=== PATIENT | female | born 1945 | race African-American/Black ===

== ENCOUNTER 2022-11-15 07:59 | Day surgery (SDC) | payer MEDICARE, MEDICAID ==
[2022-11-15] MEDS ORDERED: IODIXANOL 320MG/ML 100 ML BOTTLE IV ONE (10:37)
[2022-11-15] MEDS ORDERED: MIDAZOLAM HCL 2 MG/2 ML VIAL ONE (10:37)
[2022-11-15] MEDS ORDERED: HEPARIN 1000 UNITS/ML 10ML ONE (10:37)
[2022-11-15] MEDS ORDERED: FENTANYL CITRATE/PF 50MCG/ML 2ML VIAL ONE (10:37)
[2022-11-15] MEDS ORDERED: LIDOCAINE HCL 1% 20ML VIAL (Pyxis) INJ ONE (10:38)
[2022-11-15] MEDS ORDERED: METO25TA6 PO (11:12)
[2022-11-15] MEDS ORDERED: PANT40TA51 PO (11:12)
[2022-11-15] MEDS ORDERED: LISI40TA13 PO (11:12)
[2022-11-15] MEDS ORDERED: NIFE-32 PO (11:12)
[2022-11-15] MEDS ORDERED: RIVA10TA PO (11:12)
[2022-11-15] MEDS ORDERED: MONT-46 PO (11:12)
[2022-11-15] MEDS ORDERED: ALBU4TAB6 MT (11:13)
[2022-11-15] MEDS ORDERED: ATOR40TA70 PO (11:13)
[2022-11-15] MEDS ORDERED: CLOP-31 PO (11:13)
[2022-11-15] MEDS ORDERED: GABA-532 PO (11:13)
[2022-11-15] MEDS ORDERED: ALLO100T PO (11:13)
[2022-11-15] MEDS ORDERED: LEVO88TA7 PO (11:13)
[2022-11-15] MEDS ORDERED: ONDANSETRON HCL 4MG/2ML INJ IV PRN (11:30)
[2022-11-15] MEDS ORDERED: ACETAMINOPHEN 325MG TABLET PO PRN (11:30)
[2022-11-15] MEDS ORDERED: ATROPINE SULFATE 1MG/10ML SYR IV PRN (11:30)
== END 2022-11-15 18:35 | disposition home or self-care (01) ==
LOC: CCL 07:59
PROVIDERS: ATTEND Specialist
DX: I73.9 Peripheral vascular disease, unspecified (principal); I10 Essential (primary) hypertension; E11.9 Type 2 diabetes mellitus without complications; J44.9 Chronic obstructive pulmonary disease, unspecified; E78.5 Hyperlipidemia, unspecified; E03.9 Hypothyroidism, unspecified; E66.9 Obesity, unspecified; Z87.891 Personal history of nicotine dependence; Z79.899 Other long term (current) drug therapy; Z98.890 Other specified postprocedural states; Z68.36 Body mass index [BMI] 36.0-36.9, adult
CPT/HCPCS: 36245; 75710; C1725; C1769; C1893; J1644; J2250; J3010; J3490; Q9967; Z7610

== ENCOUNTER → 2023-05-14 | Day surgery (SDC) | payer MEDICARE, MEDICAID ==
[~2023-05-14] VITALS: Ht 177.8 cm; Wt 116.1 kg
[~2023-05-14] MED LIST: ALBU4TAB6 MT; ALLO100T PO; ATOR40TA70 PO; BALANCED SALT IRRIG SOLN COMB1 500ML OP NR; CLOP-31 PO; CYCLOPENTOLATE HCL 1% OPHTH DROPS 2ML LEFTEYE ONE; FENTANYL CITRATE/PF 50MCG/ML 2ML VIAL ONE; FOLI-43 PO; FURO20TA4 PO; GABA-532 PO; HYALURONATE SODIUM 10 MG/ML 0.55ML SYRINGE IO ONE; LACTATED RINGERS 1,000 ML IV SCH; LEVO50TA8 PO; LEVO88TA7 PO; LISI40TA13 PO; MAGN400C PO; METO25TA6 PO; MIDAZOLAM HCL 2 MG/2 ML VIAL ONE; MONT-46 PO; NIFE-32 PO; NIFE90TA60 PO; PANT40TA51 PO; PHENYLEPHRINE HCL 10% OPHTH DROPS 5ML LEFTEYE ONE; RIVA10TA PO; RIVA2.5T PO; TROPICAMIDE 1% OPHTH DROPS 15ML LEFTEYE ONE; TRYPAN BLUE 0.5 ML DISP.SYRIN IO ONE
== END | disposition home or self-care (01) ==
LOC: OR 10:40
PROVIDERS: ATTEND Ophthalmology
DX: E11.36 Type 2 diabetes mellitus with diabetic cataract (principal); H25.89 Other age-related cataract; I10 Essential (primary) hypertension; I73.9 Peripheral vascular disease, unspecified; J44.9 Chronic obstructive pulmonary disease, unspecified; E78.00 Pure hypercholesterolemia, unspecified; E03.9 Hypothyroidism, unspecified; M10.9 Gout, unspecified; Z79.84 Long term (current) use of oral hypoglycemic drugs; Z79.899 Other long term (current) drug therapy; Z98.890 Other specified postprocedural states
CPT/HCPCS: 82962; 66984; J3010; Q9957; J2250; J3490; A4217; Z7610 ×20; C1893; V2632

== ENCOUNTER 2023-10-17 22:35 | Inpatient (IN) | payer MEDICARE, MEDICAID ==
[~2023-10-17] VITALS: Ht 172.7 cm; Wt 119.7 kg
[2023-10-17 22:30] VITALS: BP 135/65; PULSE 61; RESP 20; TEMP 97.9
[~2023-10-17 22:35] MED LIST changes: -BALANCED SALT IRRIG SOLN COMB1 500ML OP NR; -CYCLOPENTOLATE HCL 1% OPHTH DROPS 2ML LEFTEYE ONE; -FENTANYL CITRATE/PF 50MCG/ML 2ML VIAL ONE; -HYALURONATE SODIUM 10 MG/ML 0.55ML SYRINGE IO ONE; -LACTATED RINGERS 1,000 ML IV SCH; -LEVO88TA7 PO; -LISI40TA13 PO; -MIDAZOLAM HCL 2 MG/2 ML VIAL ONE; -NIFE-32 PO; -PHENYLEPHRINE HCL 10% OPHTH DROPS 5ML LEFTEYE ONE; -RIVA10TA PO; -TROPICAMIDE 1% OPHTH DROPS 15ML LEFTEYE ONE; -TRYPAN BLUE 0.5 ML DISP.SYRIN IO ONE
[2023-10-18] MEDS ORDERED: CLONIDINE 0.2MG TABLET PO PRN (01:00)
[2023-10-18] MEDS ORDERED: ONDANSETRON HCL 4MG/2ML INJ IV PRN (01:00)
[2023-10-18] MEDS: METHYLPREDNISOLONE SOD SUCC 40MG/ML (ACT-O-VIAL) IV SCH (02:20)
[2023-10-18 06:00] LABS: ALANINE AMINOTRANSFERASE 12 IU/L (10-49); ASPARTATE AMINOTRANSFERASE 15 IU/L (<34); BILIRUBIN TOTAL 0.5 mg/dL (0.1-1.0); CALCIUM 9.5 mg/dL (8.7-10.4); CARBON DIOXIDE 33 mEq/L (21-32); CHLORIDE 97 mEq/L (98-107); CREATININE 1.1 mg/dL (0.6-1.0); GLUCOSE 121 mg/dL (70-105); POTASSIUM 5.3 mEq/L (3.5-5.1); PROTEIN TOTAL 7.6 g/dL (6.0-8.3); SODIUM 134 mEq/L (136-145); UREA NITROGEN BLOOD 43 mg/dL (9-23)
[2023-10-18 06:04] LABS: HEMATOCRIT. 38.3 % (36.0-48.0); HEMOGLOBIN. 11.6 g/dL (12.0-16.0); MEAN CORPUSCULAR HEMOGLOBIN 23.9 pg (28.0-32.0); MEAN CORPUSCULAR HGB CONC 30.2 g/dL (31.0-37.0); MEAN CORPUSCULAR VOLUME 79.1 fL (81.0-99.0); MEAN PLATELET VOLUME 9.8 fl (7.4-10.4); PLATELET 234 x1000/uL (130-400); RED BLOOD CELL COUNT 4.84 mill/uL (4.2-5.4); RED CELL DISTRIBUTION WIDTH 20.6 % (11.6-14.6); WHITE BLOOD COUNT 10.5 x1000/uL (4.5-11.0)
[2023-10-18 07:10] LABS: DIFFERENTIAL COMMENT 1
[2023-10-18 08:00] VITALS: BP 146/58; PULSE 64; RESP 18; TEMP 97.7
[2023-10-18] MEDS: FUROSEMIDE 40MG/4ML VIAL IVP SCH (08:41)
[2023-10-18] MEDS: LISINOPRIL 20MG TABLET PO SCH (08:43)
[2023-10-18] MEDS: GUAIFENESIN 600MG ER TABLET PO SCH (08:43)
[2023-10-18] MEDS: ASPIRIN 81MG TABLET PO SCH (08:43)
[2023-10-18] MEDS: PREDNISONE 20MG TABLET PO SCH (08:45)
[2023-10-18] MEDS: ENOXAPARIN 30MG/0.3ML SYR SUBCUT SCH (08:45)
[2023-10-18] MEDS: HYDROCHLOROTHIAZIDE 25MG TABLET PO SCH (08:46)
[2023-10-18] MEDS: AMLODIPINE 10MG TABLET PO SCH (08:47)
[2023-10-18] MEDS: SODIUM POLYSTYRENE SULFONATE 15 G/60 ML BOT PO NR (11:13)
[2023-10-18 20:00] VITALS: BP 146/57; PULSE 63; RESP 20; TEMP 97.5
[2023-10-18] MEDS: ATORVASTATIN CALCIUM 40MG TABLET PO SCH (20:37)
[2023-10-18 22:59] LABS: HYPOCHROMASIA 1+; MICROCYTOSIS 1+; PLATELET ESTIMATE NORMAL
[2023-10-19 08:00] VITALS: BP 120/44; PULSE 69; RESP 18; TEMP 98
[2023-10-19 08:35] VITALS: PULSE 69; RESP 18; TEMP 98.7
[2023-10-19] MEDS: ACETAMINOPHEN 325MG TABLET PO PRN (13:23)
[2023-10-19] MEDS: MONTELUKAST SODIUM 10MG TABLET PO SCH (16:56)
[2023-10-19 20:00] VITALS: BP 138/56; PULSE 60; RESP 20; TEMP 98.4
[2023-10-19 21:26] VITALS: PULSE 60; RESP 18; O2SAT 98
[2023-10-19] MEDS: BUDESONIDE 0.5MG/2ML NEB HHN SCH (21:26)
[2023-10-19] MEDS: IPRATROPIUM/ALBUTEROL 0.5-3(2.5)MG/3ML NEB HHN SCH (21:26)
[2023-10-20 08:00] VITALS: BP 125/44; PULSE 52; RESP 20; TEMP 97.9
[2023-10-20 08:05] VITALS: PULSE 54; RESP 16; O2SAT 95
[2023-10-20] MEDS: MAGNESIUM/ALUMINUM HYDROXIDE/SIMETHICONE 30ML UDC PO PRN (14:51)
[2023-10-20 15:30] VITALS: PULSE 61; RESP 16; O2SAT 96
[2023-10-20 20:00] VITALS: BP 113/40; PULSE 101; RESP 19; TEMP 98.1
[2023-10-20 21:59] VITALS: PULSE 54; RESP 18
[2023-10-21 08:00] VITALS: BP 153/68; PULSE 55; RESP 18; TEMP 97.9
[2023-10-21 15:45] VITALS: PULSE 60; RESP 16; O2SAT 98
[2023-10-21 19:56] VITALS: PULSE 62; RESP 18
[2023-10-21 20:00] VITALS: BP 132/48; PULSE 58; RESP 20; TEMP 97.5
[2023-10-22 07:06] LABS: BASOPHILS % 0.7 % (0.0-2.0); CALCIUM 9.8 mg/dL (8.7-10.4); CREATININE 1.1 mg/dL (0.6-1.0); DIFFERENTIAL COMMENT 0; HEMATOCRIT. 37.9 % (36.0-48.0); HEMOGLOBIN. 11.8 g/dL (12.0-16.0); LYMPHOCYTES % 18.1 % (20.0-50.0); MEAN CORPUSCULAR HEMOGLOBIN 24.8 pg (28.0-32.0); MEAN CORPUSCULAR HGB CONC 31.2 g/dL (31.0-37.0); MEAN CORPUSCULAR VOLUME 79.5 fL (81.0-99.0); MONOCYTES % 5.8 % (2.0-8.0); NEUTROPHILS % 75.4 % (40.0-76.0); PLATELET 205 x1000/uL (130-400); POTASSIUM 5.1 mEq/L (3.5-5.1); RED BLOOD CELL COUNT 4.76 mill/uL (4.2-5.4); RED CELL DISTRIBUTION WIDTH 20.8 % (11.6-14.6)
[2023-10-22 08:00] VITALS: BP 138/55; PULSE 54; RESP 17; TEMP 97
[2023-10-22 08:33] VITALS: PULSE 52; RESP 16; O2SAT 96
[2023-10-22 14:26] VITALS: PULSE 65; RESP 15; O2SAT 94
[2023-10-22 20:00] VITALS: BP 130/46; PULSE 59; RESP 20; TEMP 96.8
[2023-10-22 21:58] VITALS: PULSE 96; RESP 18
[2023-10-23 01:32] VITALS: PULSE 70; RESP 18
[2023-10-23 08:00] VITALS: BP 142/52; PULSE 55; RESP 18; TEMP 98.1
[2023-10-23 08:10] VITALS: PULSE 62; RESP 16; O2SAT 98
[2023-10-23 14:45] VITALS: PULSE 60; RESP 16; O2SAT 98
[2023-10-23 20:00] VITALS: BP 125/55; PULSE 67; RESP 18; TEMP 97.9
[2023-10-23 20:39] VITALS: PULSE 60; RESP 18; O2SAT 90
[2023-10-24 08:00] VITALS: BP 116/53; PULSE 55; RESP 18; TEMP 97.2
[2023-10-24] MEDS: FUROSEMIDE 20MG/2ML VIAL IVP SCH (09:00)
[2023-10-24 10:06] VITALS: PULSE 74; RESP 20
[2023-10-24] MEDS: IPRATROPIUM/ALBUTEROL 0.5-3(2.5)MG/3ML NEB HHN PRN (14:16)
[2023-10-24 14:17] VITALS: PULSE 65; RESP 20
[2023-10-24 20:00] VITALS: BP 133/66; PULSE 70; RESP 19; TEMP 97
[2023-10-24 20:27] VITALS: PULSE 68; RESP 20; O2SAT 92
[2023-10-25 00:43] VITALS: PULSE 65; RESP 18
[2023-10-25 08:00] VITALS: BP 125/50; PULSE 59; RESP 20; TEMP 97.7
[2023-10-25 09:46] LABS: FOLIC ACID (FOLATE) SERUM > 20.00 ng/mL (>5.38); VITAMIN B12 SERUM 637 pg/mL (211-911)
[2023-10-25 20:00] VITALS: BP 128/42; PULSE 67; RESP 20; TEMP 97.8
[2023-10-26 04:45] VITALS: PULSE 53; RESP 16; O2SAT 97
[2023-10-26 08:00] VITALS: BP 132/50; PULSE 56; RESP 18; TEMP 97.5
[2023-10-26] MEDS: FUROSEMIDE 40MG TABLET PO SCH (08:58)
== END 2023-10-26 12:00 | disposition home health service (06) | DRG 190 ==
PROVIDERS: ADMIT Psychiatry & Neurology Neurology; ATTEND Internal Medicine
DX: J44.1 Chronic obstructive pulmonary disease with (acute) exacerbation (principal); J96.21 Acute and chronic respiratory failure with hypoxia; J96.22 Acute and chronic respiratory failure with hypercapnia; E87.29 Other acidosis; E87.1 Hypo-osmolality and hyponatremia; I13.0 Hypertensive heart and chronic kidney disease with heart failure and stage 1 through stage 4 chronic kidney disease, or unspecified chronic kidney disease; N17.9 Acute kidney failure, unspecified; Z68.41 Body mass index [BMI] 40.0-44.9, adult; I50.42 Chronic combined systolic (congestive) and diastolic (congestive) heart failure; D64.9 Anemia, unspecified; E03.9 Hypothyroidism, unspecified; E66.01 Morbid (severe) obesity due to excess calories; E78.5 Hyperlipidemia, unspecified; E87.5 Hyperkalemia; I25.10 Atherosclerotic heart disease of native coronary artery without angina pectoris; I35.2 Nonrheumatic aortic (valve) stenosis with insufficiency; I73.9 Peripheral vascular disease, unspecified; L89.90 Pressure ulcer of unspecified site, unspecified stage; N18.9 Chronic kidney disease, unspecified; R00.1 Bradycardia, unspecified; R53.81 Other malaise; R73.9 Hyperglycemia, unspecified; Z87.891 Personal history of nicotine dependence; Z91.81 History of falling; Z99.81 Dependence on supplemental oxygen
CPT/HCPCS: 36415; 80048; 80053; 82306; 82607; 82746; 84443; 85025; 87426; 94640; 97110; 97116; 97162; 97166; 97530; 97535; J1650; J1940; J2920; J7512; J7626

== ENCOUNTER → 2024-08-11 | Day surgery (SDC) | payer MEDICARE, MEDICAID ==
[~2024-08-11] VITALS: Ht 177.8 cm; Wt 108.9 kg
[~2024-08-11] MED LIST changes: +BALANCED SALT IRRIG SOLN COMB1 500ML OP NR; +CYCLOPENTOLATE HCL 1% OPHTH DROPS 2ML RIGHTEYE ONE; +DOCU-422 PO; +FENTANYL CITRATE/PF 50MCG/ML 2ML VIAL ONE; +FURO-151 PO; -FURO20TA4 PO; +GABA-1180 PO; -GABA-532 PO; +HYALURONATE SODIUM 10MG/ML 0.85ML SYRINGE IO ONE; +HYDROMORPHONE HCL/PF 1MG/ML INJ IV PRN; +LABETALOL 5MG/ML 4ML INJ IV PRN; +LIDOCAINE HCL 1% 10 MG/ML 10ML VIAL ONE; +MEPERIDINE HCL/PF 25MG/ML CPJ IV PRN; +METF-414 PO; +MIDAZOLAM HCL 2 MG/2 ML VIAL ONE; +ONDANSETRON HCL 4MG/2ML INJ IV PRN; +P20 MT; +PHENYLEPHRINE HCL 10% OPHTH DROPS 5ML RIGHTEYE ONE; +PROPOFOL 200MG/20ML VIAL IV ONE; +SPIR25TA6 PO; +TROPICAMIDE 1% OPHTH DROPS 15ML RIGHTEYE ONE; +TRYPAN BLUE 0.5 ML DISP.SYRIN IO ONE
[2024-08-11] MEDS: SODIUM CHLORIDE 0.9% 1,000 ML IV SCH (06:22)
== END | disposition home or self-care (01) ==
LOC: OR 05:33
PROVIDERS: ATTEND Ophthalmology
DX: E11.36 Type 2 diabetes mellitus with diabetic cataract (principal); H25.89 Other age-related cataract; H21.501 Unspecified adhesions of iris, right eye; E11.51 Type 2 diabetes mellitus with diabetic peripheral angiopathy without gangrene; I10 Essential (primary) hypertension; E78.5 Hyperlipidemia, unspecified; J44.9 Chronic obstructive pulmonary disease, unspecified; I25.10 Atherosclerotic heart disease of native coronary artery without angina pectoris; M10.9 Gout, unspecified; Z86.2 Personal history of diseases of the blood and blood-forming organs and certain disorders involving the immune mechanism; Z79.84 Long term (current) use of oral hypoglycemic drugs; Z79.899 Other long term (current) drug therapy; Z98.890 Other specified postprocedural states
CPT/HCPCS: 66982; 82962; V2632; J3010; J3490 ×2; J2250; J2704; Q9957